=== PATIENT | male | born 1950 | race Caucasian/White ===

== ENCOUNTER 2017-02-15 02:43 | Inpatient (IN) | payer MEDICARE, OTHER ==
[~2017-02-15] VITALS: Ht 180.3 cm; Wt 101.9 kg
--- NOTE | ~2017-02-15 | EC ---
PATIENT:SUMIT TSE DATE OF SERVICE: 02/16/17 SEX: M MEDICAL RECORD: [id number] DATE OF : 50 LOCATION:[facility] D230 AGE OF PATIENT: 66 ADMISSION DATE: 02/16/17 REFERRING PHYSICIAN: INTERPRETING PHYSICIAN: CURT PARMAR MD ECHOCARDIOGRAM REPORT ECHO CHARGES 4 ECHO COMPLETE CLINICAL DIAGNOSIS: CP ECHOCARDIOGRAPHIC MEASUREMENTS (adult normal given) AC root (d.<3.7cm) 3.5 cm LV Septum d (<1.2 cm> 1.5 cm Valve Excursion 1.9 cm LV Septum (systole) 2.0 cm Left Atria (s.<4.0cm> 3.1 cm LVPW d(<1.2cm) 1.1 cm RV (d.<2.3cm) 2.2 cm LVPW (sytole) 2.0 cm LV diastole(<5.6CM) 5.1 cm MV E-F(>70mm/sec) cm LV systole 2.7 cm LVOT Diameter 1.9 cm MV exc.(>10mm) cm Est.ejection fraction (50-75%) % Pericardial Effusion N DOPPLER: LVIT cm/sec A 74.0 cm/sec E 113 cm/sec LA cm/sec RVSP 26.0 mmHg LVOT 131 cm/sec AOP1/2T m/s Asc. Ao 133 cm/sec RVOT 66.0 cm/sec RA cm/sec PA 93.0 cm/sec AV Gradient Peak 7.0 mmHg AV Mean 3.2 mmHg AV Area 2.4 cm MV Gradient Peak 5.7 mmHg MV Mean 2.6 mmHg MV Area cm COMMENTS: Care Professionals: 1 MOIRA CORREIAOE Chute Boss: 1 Dr. Parmar TAPE# PACS DATE OF SERVICE: 02/17/2017 Echocardiogram FINDINGS: 1. Left ventricular chamber size is within normal limits. Left ventricular systolic function is normal. Overall ejection fraction estimated at 55%. 2. Left atrium, right atrium, and right ventricular chamber sizes are within normal limits. 3. Valvular structures: Mitral valve has an echogenic structure, is most ECHOCARDIOGRAM REPORT [id number] SUMIT TSE likely a ruptured chordae, relatively difficult study. This does not appear to be vegetation; however, cannot rule this out on this quality of the study. The remaining valvular structures have normal structure and motion. 4. Doppler interrogation only reveals trace mitral regurgitation. No other valvular insufficiency or stenosis. OVERALL IMPRESSION: Preserved LV function. Echogenic structure on the posterior leaflet of the mitral valve, most likely a ruptured chordae, cannot rule out endocarditis. We would suggest transesophageal echo in the future. TRANSINT:[id number] Voice Confirmation ID: [id number] DOCUMENT ID: [id number] CURT PARMAR MD at 1323 CC: [id number] DICTATION DATE: 02/18/17829 CLINICAL NUTRITIONIST: 02/18/17 1246 DIS IN 02/21/17 [facility] [address] [place] [address]
--- NOTE | ~2017-02-15 | OP ---
PATIENT NAME: SUMIT TSE MEDICAL RECORD: [id number] :50 LOCATION:D.[facility] D.2303 ADMISSION DATE:02/16/17 SURGEON: ELVIS BRAVO MD DATE OF OPERATION: 02/16/2017 PREOPERATIVE DIAGNOSES: 1. Hiatal hernia. 2. Gastroesophageal reflux disease. 3. Nausea and vomiting. 4. Asthma. 5. Hypertension. 6. Coronary artery disease. POSTOPERATIVE DIAGNOSES: 1. Hiatal hernia. 2. Gastroesophageal reflux disease. 3. Nausea and vomiting. 4. Asthma. 5. Hypertension. 6. Coronary artery disease. PROCEDURE: EGD with biopsy. SURGEON: Elvis Bravo MD REPORT OF PROCEDURE: An Olympus endoscope was advanced through the patient's mouth and esophagus. Immediately in the esophagus, there was noted to be some inflammatory changes with this dark black-appearing almost necrotic look to the distal esophagus. Biopsy was performed of this area and sent off for permanent specimen. It was very difficult to get through the esophagus, but eventually was able to pass through and get into the patient's gastric lumen. Within the stomach, there was noted to be 2500 mL of fluid that was mainly bilious with no sign of any significant bleeding or blood clots. There was some bleeding to the tissues after we had manipulated them for a while. We eventually were able to get rid of all fluid and I was able to cannulate the patient's pylorus and enter the third portion of the duodenum. The duodenum appeared to be normal and there did not appear to be any kinks or lesions blocking flow of the gastric outlet. As I pulled back and looked at the stomach, there was a lot of staining of the tissue from the bile, but I did not see any distinct masses, lesions, or ulcerations. A random biopsy was performed at the antrum of the stomach. We then removed the insufflation from the stomach and pulled back into the distal esophagus. The length of inflammatory tissue was approximately 10 cm in the esophagus. At this point, all the insufflation was removed and the endoscope was taken out. As we slowly pulled out of the esophagus, we saw there were no masses or lesions visible. COMPLICATIONS: None. CONDITION: Stable. ANESTHESIA: TIVA. BLOOD LOSS: Minimal. TRANSINT:[id number] Voice Confirmation ID: [id number] DOCUMENT ID: [id number] OPERATIVE REPORT [id number] LUCILAJoseSUMIT CHRISTIAN MD at 0956 CC: [id number] DICTATION DATE: 02/16/17 1230 INSTRUMENT DESIGNER: 02/16/17 1336 DIS IN 02/21/17 [facility] [address] [place] [address]
--- NOTE | ~2017-02-15 | CN ---
PATIENT NAME:SUMIT TSE MEDICAL RECORD: [id number] : 50 LOCATION:[facility]2303 ADMIT DATE: 02/16/17 ACCOUNT: [id number] CONSULTING PHYSICIAN: CURT MCCARTY MD REFERRING PHYSICIAN: MK VILLA MD DATE OF CONSULTATION: 02/18/2017 CARDIOLOGY CONSULTATION DIAGNOSES: 1. Coronary artery disease. 2. Previous stenting. 3. Anticoagulation, Effient. 4. Mitral valve disorder. 5. Hypertension. 6. Hyperlipidemia. HISTORY OF PRESENT ILLNESS: This is a gentleman, who presents with esophagitis, gastritis, nausea, vomiting. He had a past history of cardiac stenting at [facility]. He was on Effient. The question is to continue or discontinue the Effient. The last stenting was done in June. He has been asymptomatic from the standpoint of ischemic heart disease. An echocardiogram was done. There was a mitral valvular disorder. Review of the echo showed most likely a ruptured chordae and not vegetative endocarditis. He clinically has no fever and does not demonstrate any symptoms of endocarditis. He has been told that he has a valvular disorder in the past and they have considered transesophageal echo; however, the valve is functioning normally and no transesophageal echo has been done as of yet. PHYSICAL EXAMINATION: GENERAL APPEARANCE: Well-nourished, well-developed, appears stated age. Level of distress, comfortable. PSYCHIATRIC: Mental status, alert, normal affect. Orientation, oriented to time, place and person. EYES: Lids and conjunctiva, noninjected. No discharge, no pallor. ENT: Lips, teeth, gums, normal dentition. Oropharynx, no cyanosis, no pallor. NECK: Carotid arteries, bilateral normal upstroke, no bruits, no thrills. JUGULAR VEINS: No jugular venous pressure or distention. CERVICAL LYMPH NODES: Nontender, nonenlarged. THYROID: Not enlarged. Nontender. No nodules. LUNGS: Respiratory effort, unlabored. CHEST: Normal curvature. No thoracic deformity. No chest wall tenderness. Percussion, resonant. Auscultation, clear. No wheezes, no rales, no rhonchi. CARDIOVASCULAR: Precordial exam, nondisplaced. No heaves or pericardial thrills. Rate and rhythm, regular. Heart sounds, normal S1, normal S2. No S3, no gallop, no rub. Systolic murmur, not heard. Diastolic murmur, not heard. EXTREMITIES: No cyanosis, no edema. Peripheral pulses, full and equal in all extremities, except as noted. No bruits appreciated. ABDOMEN: Soft, nondistended. Normal aorta. No bruit. Nontender. No masses. Liver, nontender, no hepatomegaly. Spleen, nontender, no splenomegaly. MUSCULOSKELETAL: No joint tenderness. No joint swelling. No erythema. NEUROLOGICAL: Normal gait, normal strength, normal tone. SKIN: Warm and dry. OVERALL IMPRESSION: CONSULT REPORT [id number] SUMIT TSE 1. Anticoagulation. At this time with his esophagitis and gastritis, would hold his Effient. He is greater than 6 months out from stenting. He is low risk. 2. Mitral valve disorder. This is not a new problem. He has been told he had a valvular disorder in the past. Would not pursue a transesophageal echo now especially after EGD and biopsy. We will defer to [facility] if they want to proceed with transesophageal echo in the near future. TRANSINT:[id number] Voice Confirmation ID: [id number] DOCUMENT ID: [id number] CURT MCCARTY MD at 1323 CC: [id number] DICTATION DATE: 02/18/1743 PRESS FEEDER: 02/18/17 1246 DIS IN 02/21/17 [facility] [address] [place] [address]
--- NOTE | ~2017-02-15 | OP ---
PATIENT NAME: SUMIT TSE MEDICAL RECORD: [id number] :50 LOCATION:[facility] D.2303 ADMISSION DATE:02/16/17 SURGEON: ELVIS BRAVO MD DATE OF OPERATION: 02/18/2017 PREOPERATIVE DIAGNOSES: 1. Paraesophageal hernia. 2. Gastroesophageal reflux disease. 3. Acute kidney injury. 4. Acute nausea and vomiting. POSTOPERATIVE DIAGNOSES: 1. Paraesophageal hernia. 2. Gastroesophageal reflux disease. 3. Acute kidney injury. 4. Acute nausea and vomiting. PROCEDURE: Laparoscopic hiatal hernia repair with Hoang fundoplication. SURGEON: Elvis Bravo MD REPORT OF PROCEDURE: The patient's abdomen was prepped and draped in sterile fashion. A Veress needle was inserted in the left upper quadrant and the abdomen was insufflated. An 11-mm Visiport trocar was inserted in the midline just above the umbilicus. Under direct visualization, I could see the Veress needle and there was no sign of any injury to bowel or surrounding structures. We then placed a 12-mm trocar in the left subcostal region, a 5-mm trocar in the epigastrium, a 5-mm trocar in the right lateral subcostal region, and a final 5-mm trocar in the left lateral abdomen. The patient had a huge hiatal hernia with colon extending up into the hiatal hernia. The entire stomach was up in the chest. Blunt dissection was performed. The patient's nearly entire omentum was up in the chest. As we pulled this down, I finally freed up the tissue, where we were able to get all the omentum and colon out of the way. The stomach was still adherent to the tissues inside the thoracic cavity. We started taking down the hernia sac within the thoracic cavity by starting at the esophageal hiatus. We took down the peritoneum and extended our dissection into the chest, taking down the hernia sac. Once we released the hernia sac, we were able to pull the stomach down into the abdominal cavity. There was a little bit of tension on the stomach, but it came very close to entering the abdomen without any manipulation. The esophagus appeared to be intact. At this point, an OG tube was placed and passed easily into the stomach. The esophageal hiatus was reapproximated with interrupted 0 Polydeks times 4 with good approximation of the tissue. We then performed a 360-degree posterior wrap at the fundus of the stomach around the distal esophagus. This was performed with 0 Polydeks times 3 with the top of the bottom suture incorporating a bite of the esophagus. At this point, we irrigated out the abdomen and assured there was no sign of any bleeding. The OG tube was then removed with ease. A 0 Vicryl on a Connor-Clari was used to close the 11- and 12-mm trocar site fascias. At this point, the insufflation and trocars were removed. We infused a total of 10 mL of 0.25% Marcaine with epinephrine into the surrounding tissues and then closed the incisions with subcutaneous 5-0 Monocryl. COMPLICATIONS: None. CONDITION: Stable. OPERATIVE REPORT [id number] SUMIT TSE ANESTHESIA: General endotracheal and local. BLOOD LOSS: 50 mL. TRANSINT:[id number] Voice Confirmation ID: [id number] DOCUMENT ID: [id number] ELVIS BRAVO MD at 0956 CC: [id number] DICTATION DATE: 02/18/17 1548 WARDROBE CUSTODIAN: 02/18/17 1636 DIS IN 02/21/[address] [facility] [address] [place] [address]
[2017-02-15 03:17] LABS: BASOPHILS 0.1 % (0-2); EOSINOPHILS 0.5 % (0-7); HEMATOCRIT 45.2 % (42.0-54.0); HEMOGLOBIN 15.3 g/dL (13.5-17.5); IMMATURE GRANULOCYTES 0.7 % (0-5); LYMPHOCYTES 8.8 % (15-50); MCHC 33.8 g/dL (31.0-37.0); MCV 97.4 fL (80.0-100.0); MEAN PLATELET VOLUME 9.9 fL (7.4-10.4); MONOCYTES 7.8 % (2-11); NEUTROPHILS 82.1 % (40-80); PLATELET COUNT 360 10x3/uL (130-400); RBC 4.64 10x6/uL (4.20-6.10); RDW 13.7 % (11.5-14.5); WBC 14.3 10x3/uL (4.8-10.8)
[2017-02-15 03:34] LABS: ALBUMIN 4.1 g/dL (3.4-5.0); ALKALINE PHOSPHATASE 66 U/L (46-116); ALT (SGPT) 31 U/L (10-68); BILIRUBIN - TOTAL 0.41 mg/dL (0.2-1.3); CALC OSMOLALITY 291 mosm/kg (275-300); CALCIUM 9.7 mg/dL (8.5-10.1); CARBON DIOXIDE 30.5 mmol/L (21.0-32.0); CHLORIDE - SERUM 101 mmol/L (98-107); CREATININE - SERUM 1.6 mg/dL (0.6-1.3); GLUCOSE 175 mg/dL (74-106); POTASSIUM - SERUM 4.5 mmol/L (3.5-5.1); PROTEIN - SERUM 7.7 g/dL (6.4-8.2); SODIUM 143 mmol/L (136-145); UREA NITROGEN 22 mg/dL (7-18); eGFR NON AFRICAN AMERICAN 46 mL/min (90-120)
[2017-02-15 03:45] LABS: AMYLASE - SERUM 66 U/L (25-115); CKMB 0.6 U/L (0.0-3.6); CREATINE KINASE 82 UL (21-232); LIPASE 183 U/L (73-393); TROPONIN-I < 0.017 ng/mL (0.000-0.060)
[2017-02-15 08:00] VITALS: BP 155/80
[2017-02-15] MEDS ORDERED: LOPRESSOR25 MG PO (08:03)
[2017-02-15] MEDS ORDERED: PRINIVIL20 MG PO (08:04)
[2017-02-15] MEDS ORDERED: EFFIENT5 MG PO (08:04)
[2017-02-15] MEDS ORDERED: BAYER CHEWABLE81 MG PO (08:04)
[2017-02-15] MEDS ORDERED: ALDACTAZIDE 25/1 TAB PO (08:05)
[2017-02-15] MEDS ORDERED: LIPITOR10 MG PO (08:06)
[2017-02-15 12:00] VITALS: BP 147/79
[2017-02-15 15:34] VITALS: BP 153/80; BMI 29.3
[2017-02-15 16:00] VITALS: BP 136/95
[2017-02-15 19:00] VITALS: BP 125/87
[2017-02-16 04:00] VITALS: BP 150/89
[2017-02-16 06:22] LABS: HEMATOCRIT 46.5 % (42.0-54.0); HEMOGLOBIN 15.2 g/dL (13.5-17.5); MCH 32.3 pg (26.0-34.0); MCHC 32.7 g/dL (31.0-37.0); MCV 98.9 fL (80.0-100.0); MEAN PLATELET VOLUME 10.2 fL (7.4-10.4); PLATELET COUNT 360 10x3/uL (130-400); RDW 14.2 % (11.5-14.5); WBC 20.8 10x3/uL (4.8-10.8)
[2017-02-16 06:28] LABS: ALBUMIN 3.8 g/dL (3.4-5.0); ANION GAP 14.3 mmol/L (8-16); BILIRUBIN - TOTAL 0.53 mg/dL (0.2-1.3); CALCIUM 9.4 mg/dL (8.5-10.1); CARBON DIOXIDE 33.4 mmol/L (21.0-32.0); CREATININE - SERUM 1.7 mg/dL (0.6-1.3); PROTEIN - SERUM 7.5 g/dL (6.4-8.2)
[2017-02-16 06:34] LABS: POTASSIUM - SERUM 3.7 mmol/L (3.5-5.1)
[2017-02-16 06:50] LABS: LYMPHOCYTES 10 % (15-50); MONOCYTES 3 % (2-11); NEUTROPHILS 85 % (40-80); PLATELET ESTIMATE NORMAL
[2017-02-16 08:00] VITALS: BP 127/90
[2017-02-16 13:17] VITALS: Ht 180.3 cm; Wt 101.9 kg
[2017-02-16 13:48] VITALS: BP 157/79
[2017-02-16 15:23] LABS: APPEARANCE CLEAR (CLEAR); BILIRUBIN NEGATIVE (NEGATIVE); COLOR YELLOW (YELLOW); GLUCOSE NEGATIVE (NEGATIVE); KETONE NEGATIVE (NEGATIVE); NITRITE NEGATIVE (NEGATIVE); PROTEIN NEGATIVE (NEGATIVE); UROBILINOGEN NORMAL (NORMAL)
[2017-02-16 17:04] VITALS: BP 146/85
[2017-02-16 20:46] VITALS: BP 141/88
[2017-02-16 23:44] VITALS: BP 141/69
[2017-02-17 04:46] VITALS: BP 75/51
[2017-02-17 05:35] LABS: BASOPHILS 0.1 % (0-2); EOSINOPHILS 0.4 % (0-7); HEMATOCRIT 39.9 % (42.0-54.0); HEMOGLOBIN 12.8 g/dL (13.5-17.5); IMMATURE GRANULOCYTES 0.4 % (0-5); LYMPHOCYTES 8.3 % (15-50); MCH 32.2 pg (26.0-34.0); MCHC 32.1 g/dL (31.0-37.0); MCV 100.3 fL (80.0-100.0); MEAN PLATELET VOLUME 10.4 fL (7.4-10.4); MONOCYTES 11.8 % (2-11); PLATELET COUNT 304 10x3/uL (130-400); RBC 3.98 10x6/uL (4.20-6.10); RDW 14.3 % (11.5-14.5); WBC 16.8 10x3/uL (4.8-10.8)
[2017-02-17 06:14] LABS: ANION GAP 10.1 mmol/L (8-16); BILIRUBIN - TOTAL 0.57 mg/dL (0.2-1.3); CALCIUM 7.9 mg/dL (8.5-10.1); CARBON DIOXIDE 29.3 mmol/L (21.0-32.0); CREATININE - SERUM 1.6 mg/dL (0.6-1.3); POTASSIUM - SERUM 3.4 mmol/L (3.5-5.1); PROTEIN - SERUM 5.8 g/dL (6.4-8.2)
[2017-02-17 06:15] LABS: ALBUMIN 2.7 g/dL (3.4-5.0)
[2017-02-17 13:26] VITALS: BP 101/64
[2017-02-17 16:33] LABS: APPEARANCE CLEAR (CLEAR); BILIRUBIN NEGATIVE (NEGATIVE); COLOR YELLOW (YELLOW); GLUCOSE NEGATIVE (NEGATIVE); KETONE NEGATIVE (NEGATIVE); NITRITE NEGATIVE (NEGATIVE); PROTEIN NEGATIVE (NEGATIVE); SPECIFIC GRAVITY 1.015 (1.005-1.020); UROBILINOGEN NORMAL (NORMAL)
[2017-02-17 19:00] VITALS: BP 115/65
[2017-02-18] VITALS: BP 133/77
[2017-02-18 04:00] VITALS: BP 96/53
[2017-02-18 06:57] LABS: HEMATOCRIT 36.6 % (42.0-54.0); HEMOGLOBIN 12.1 g/dL (13.5-17.5); LYMPHOCYTES 12.9 % (15-50); MCH 31.8 pg (26.0-34.0); MCHC 33.1 g/dL (31.0-37.0); MEAN PLATELET VOLUME 9.6 fL (7.4-10.4); NEUTROPHILS 69.5 % (40-80); PLATELET COUNT 246 10x3/uL (130-400); RDW 13.2 % (11.5-14.5)
[2017-02-18 07:12] LABS: ALBUMIN 2.6 g/dL (3.4-5.0); ANION GAP 10.9 mmol/L (8-16); BILIRUBIN - TOTAL 0.4 mg/dL (0.2-1.3); CARBON DIOXIDE 31.7 mmol/L (21.0-32.0); CREATININE - SERUM 1.3 mg/dL (0.6-1.3); POTASSIUM - SERUM 3.6 mmol/L (3.5-5.1); PROTEIN - SERUM 5.7 g/dL (6.4-8.2)
[2017-02-18 07:20] LABS: MCV 96.3 fL (80.0-100.0); WBC 8.8 10x3/uL (4.8-10.8)
[2017-02-18 08:32] VITALS: BP 105/59
[2017-02-18 16:49] VITALS: BP 110/60
[2017-02-18 21:52] VITALS: BP 104/60
[2017-02-19 04:33] LABS: BASOPHILS 0 % (0-2); EOSINOPHILS 0.5 % (0-7); HEMATOCRIT 38.2 % (42.0-54.0); HEMOGLOBIN 12.3 g/dL (13.5-17.5); IMMATURE GRANULOCYTES 0.5 % (0-5); MCHC 32.2 g/dL (31.0-37.0); PLATELET COUNT 256 10x3/uL (130-400); RBC 3.84 10x6/uL (4.20-6.10); WBC 9.1 10x3/uL (4.8-10.8)
[2017-02-19 04:35] LABS: MCV 99.5 fL (80.0-100.0)
[2017-02-19 04:48] LABS: ALBUMIN 2.5 g/dL (3.4-5.0); BILIRUBIN - TOTAL 0.4 mg/dL (0.2-1.3); CREATININE - SERUM 1.3 mg/dL (0.6-1.3); POTASSIUM - SERUM 4.1 mmol/L (3.5-5.1); PROTEIN - SERUM 5.7 g/dL (6.4-8.2)
[2017-02-19 04:51] LABS: ANION GAP 14.9 mmol/L (8-16); CARBON DIOXIDE 23.2 mmol/L (21.0-32.0)
[2017-02-19 04:52] LABS: CALCIUM 6.9 mg/dL (8.5-10.1)
[2017-02-19 06:17] VITALS: BP 122/90
[2017-02-19 08:49] VITALS: BP 120/73
[2017-02-19] MEDS ORDERED: REGLAN10 MG PO (11:31)
[2017-02-19] MEDS ORDERED: HYDROCODONE-APA1 TAB PO (11:31)
[2017-02-19 12:29] VITALS: BP 103/65
[2017-02-19 17:00] VITALS: BP 113/70
[2017-02-19 20:30] VITALS: BP 112/73
[2017-02-20] VITALS (9 sets, daily range): BP systolic 43–143; BP diastolic 29–117
[2017-02-20 06:41] LABS: BASOPHILS 0.1 % (0-2); EOSINOPHILS 0.6 % (0-7); HEMATOCRIT 42.9 % (42.0-54.0); HEMOGLOBIN 14.1 g/dL (13.5-17.5); IMMATURE GRANULOCYTES 3.3 % (0-5); LYMPHOCYTES 9.4 % (15-50); MCH 31.9 pg (26.0-34.0); MCHC 32.9 g/dL (31.0-37.0); MONOCYTES 11.4 % (2-11); NEUTROPHILS 75.2 % (40-80); PLATELET COUNT 235 10x3/uL (130-400); RBC 4.42 10x6/uL (4.20-6.10); RDW 13.9 % (11.5-14.5); WBC 7.8 10x3/uL (4.8-10.8)
[2017-02-20 06:43] LABS: MCV 97.1 fL (80.0-100.0)
[2017-02-20 06:59] LABS: ALBUMIN 2.4 g/dL (3.4-5.0); ANION GAP 21.6 mmol/L (8-16); BILIRUBIN - TOTAL 0.65 mg/dL (0.2-1.3); CALCIUM 7.3 mg/dL (8.5-10.1); CARBON DIOXIDE 17.9 mmol/L (21.0-32.0); POTASSIUM - SERUM 4.5 mmol/L (3.5-5.1); PROTEIN - SERUM 5.4 g/dL (6.4-8.2)
[2017-02-20 07:00] LABS: CREATININE - SERUM 3.1 mg/dL (0.6-1.3)
[2017-02-20 23:53] LABS: HEMATOCRIT 35.8 % (42.0-54.0); HEMOGLOBIN 11.7 g/dL (13.5-17.5); LYMPHOCYTES 14.9 % (15-50); MCHC 32.7 g/dL (31.0-37.0); MCV 97.8 fL (80.0-100.0); MEAN PLATELET VOLUME 10.3 fL (7.4-10.4); PLATELET COUNT 204 10x3/uL (130-400); RBC 3.66 10x6/uL (4.20-6.10); RDW 13.9 % (11.5-14.5)
[2017-02-21 00:09] LABS: ALKALINE PHOSPHATASE 48 U/L (46-116); CALCIUM 8.3 mg/dL (8.5-10.1); CARBON DIOXIDE 16.8 mmol/L (21.0-32.0); CHLORIDE - SERUM 103 mmol/L (98-107); PROTEIN - SERUM 4.8 g/dL (6.4-8.2); SODIUM 139 mmol/L (136-145); UREA NITROGEN 51 mg/dL (7-18); eGFR NON AFRICAN AMERICAN 13 mL/min (90-120)
[2017-02-21 00:11] LABS: ALBUMIN 1.6 g/dL (3.4-5.0); ALT (SGPT) 606 U/L (10-68); CALC OSMOLALITY 288 mosm/kg (275-300); CREATININE - SERUM 4.8 mg/dL (0.6-1.3); GLUCOSE 40 mg/dL (74-106); POTASSIUM - SERUM 5.4 mmol/L (3.5-5.1)
[2017-02-21 00:13] VITALS: BP 59/44
[2017-02-21 00:21] VITALS: BP 93/82
[2017-02-21 00:34] LABS: CKMB 61.9 U/L (0.0-3.6); MAGNESIUM - SERUM 2.1 mg/dL (1.8-2.4); PHOSPHOROUS 8.6 mg/dL (2.5-4.9); PRO BNP 2346 pg/mL (0-125)
[2017-02-21 00:35] LABS: CREATINE KINASE 2952 UL (21-232); TROPONIN-I 0.251 ng/mL (0.000-0.060)
[2017-02-21 00:41] VITALS: BP 74/61
== END 2017-02-21 13:17 | DRG 326 ==
LOC: D.ER 02:43 → D.M2 06:40 → OBSVTIME 06:40 → D.M2 06:40 → D.ICU 02-20 23:12
PROVIDERS: Emergency Medicine; Family Medicine; Surgery
PROC: 0DB78ZX Excision of Stomach, Pylorus, Via Natural or Artificial Opening Endoscopic, Diagnostic (ICD-10-PCS; 2017-02-16)
PROC: 0DB98ZX Excision of Duodenum, Via Natural or Artificial Opening Endoscopic, Diagnostic (ICD-10-PCS; principal; 2017-02-16 10:00)
PROC: 0BQT4ZZ Repair Diaphragm, Percutaneous Endoscopic Approach (ICD-10-PCS; 2017-02-18)
PROC: 0DV44ZZ Restriction of Esophagogastric Junction, Percutaneous Endoscopic Approach (ICD-10-PCS; 2017-02-18 10:45)
PROC: 0BH17EZ Insertion of Endotracheal Airway into Trachea, Via Natural or Artificial Opening (ICD-10-PCS; 2017-02-20)
PROC: 5A1935Z Respiratory Ventilation, Less than 24 Consecutive Hours (ICD-10-PCS; 2017-02-20)
PROC: 5A12012 Performance of Cardiac Output, Single, Manual (ICD-10-PCS; 2017-02-20)
PROC: 5A12012 Performance of Cardiac Output, Single, Manual (ICD-10-PCS; 2017-02-20)
PROC: 5A12012 Performance of Cardiac Output, Single, Manual (ICD-10-PCS; 2017-02-21)
DX: K44.9 Diaphragmatic hernia without obstruction or gangrene (principal); N17.0 Acute kidney failure with tubular necrosis; J96.00 Acute respiratory failure, unspecified whether with hypoxia or hypercapnia; K21.9 Gastro-esophageal reflux disease without esophagitis; I25.10 Atherosclerotic heart disease of native coronary artery without angina pectoris; I10 Essential (primary) hypertension